=== PATIENT | female | born 1960 | race Caucasian/White ===

== ENCOUNTER 2020-12-23 20:09 | Observation (INO) | payer MEDICARE, MEDICAID ==
[~2020-12-23] VITALS: Ht 172.7 cm; Wt 98.0 kg
[~2020-12-23 20:09] MED LIST: FLEXERIL10 MG PO; LINDANE TP; NO HOME MEDICATIONS; NORCO 325 MG-51 TA1 PO; NORCO 325 MG-51 TAB PO; PEN-VEE K250 MG PO; PEN-VEE K500 MG PO
[2020-12-23] MEDS ORDERED: PROVENTIL0.09 MG/A1 IH (20:22)
[2020-12-23 21:00] LABS: BASO # 0.05 (0.02-0.10); EOS # 0.48 (0.04-0.40); EOS % 4.2 % (1.0-5.0); HEMATOCRIT 43.6 % (37.0-47.0); HEMOGLOBIN 14.5 g/dL (12.5-16.0); LYMPH# 4.32 (1.50-4.00); MEAN CELL VOLUME 94 fl (78-100); MEAN CORPUSCULAR HEMOGLOBIN 31 pg (27-31); MEAN CORPUSCULAR HGB CONC 33 g/dL (33-37); MEAN PLATELET VOLUME 9.7 fl (7.4-10.4); MONO # 0.92 (0.20-0.80); NEU # 5.64 (1.40-6.50); PLATELET COUNT 247 K/mm3 (130-400); RED BLOOD COUNT 4.62 M/mm3 (4.10-5.30); RED CELL DISTRIBUTION WIDTH 13.1 % (11.5-14.5); WHITE BLOOD COUNT 11.4 K/mm3 (4.8-10.8)
[2020-12-23 21:11] LABS: POTASSIUM 3.5 mmol/L (3.5-5.1); SODIUM 140 mmol/L (136-145)
[2020-12-23 21:12] LABS: CALCIUM 9.5 mg/dL (8.3-10.5)
[2020-12-23 21:13] LABS: GLUCOSE 94 mg/dL (65-105); TOTAL PROTEIN 7.4 g/dL (6.2-8.1)
[2020-12-23 21:14] LABS: CARBON DIOXIDE 21 mmol/L (23-31)
[2020-12-23 21:15] LABS: TOTAL BILIRUBIN 0.4 mg/dL (0.2-1.2)
[2020-12-23 21:18] LABS: AST-SGOT 22 U/L (5-34)
[2020-12-23 21:19] LABS: ALT/SGPT 28 U/L (0-55)
[2020-12-23 21:35] LABS: TROPONIN-I < 0.03 ng/mL (<0.030)
[2020-12-23 22:49] LABS: URINE APPEARANCE HAZY; URINE BILIRUBIN NEGATIVE (NEGATIVE); URINE BLOOD 50 ery/uL (NEGATIVE); URINE COLOR YELLOW; URINE GLUCOSE NEGATIVE (NEGATIVE); URINE KETONE NEGATIVE (NEGATIVE); URINE LEUKOCYTE ESTERASE 1+ (NEGATIVE); URINE MUCUS PRESENT (NOT PRESENT); URINE NITRATE NEGATIVE (NEGATIVE); URINE PROTEIN(semi-quant) NEGATIVE (NEGATIVE); URINE UROBILINOGEN NORMAL (NORMAL); URINE WBC 16-30 /hpf (0-3)
[2020-12-24 02:10] VITALS: BP 168/98
[2020-12-24 06:14] VITALS: BP 105/65
[2020-12-24 09:38] VITALS: BP 119/62
[2020-12-24] MEDS ORDERED: PROVENTIL0.09 MG/A1 IH (11:07)
[2020-12-24] MEDS ORDERED: CEFDINIR300 MG PO (11:07)
[2020-12-24] MEDS ORDERED: ASPIRIN E.C. 8181 MG PO (11:07)
[2020-12-24] MEDS ORDERED: LISINOPRIL10 MG PO (11:08)
[2020-12-24] MEDS ORDERED: PRILOSEC 20MG20 MG PO (11:09)
== END 2020-12-24 12:30 | disposition home or self-care (01) ==
LOC: ED 20:09 → MED/SURG 12-24 00:30
PROVIDERS: ADMIT Nurse Practitioner Family
DX: F41.9 Anxiety disorder, unspecified (principal); H53.2 Diplopia; J44.9 Chronic obstructive pulmonary disease, unspecified; K21.9 Gastro-esophageal reflux disease without esophagitis; I63.9 Cerebral infarction, unspecified; I16.0 Hypertensive urgency; N39.0 Urinary tract infection, site not specified; F17.210 Nicotine dependence, cigarettes, uncomplicated; Z90.710 Acquired absence of both cervix and uterus
CPT/HCPCS: G0378; J2060

== ENCOUNTER 2021-04-07 13:01 | Emergency (ER) | payer MEDICARE, MEDICAID ==
[~2021-04-07] VITALS: Ht 172.7 cm; Wt 93.0 kg
[~2021-04-07 13:01] MED LIST changes: +ASPIRIN E.C. 8181 MG PO; +CEFDINIR300 MG PO; +LISINOPRIL10 MG PO; +PRILOSEC 20MG20 MG PO; +PROVENTIL0.09 MG/A1 IH
[2021-04-07 14:19] LABS: BASO # 0.03 K/mm3 (0.02-0.10); EOS # 0.03 K/mm3 (0.04-0.40); EOS % 0.4 % (1.0-5.0); HEMATOCRIT 40.6 % (37.0-47.0); HEMOGLOBIN 13.5 g/dL (12.5-16.0); LYMPH# 1.96 K/mm3 (1.50-4.00); MEAN CELL VOLUME 93 fl (78-100); MEAN CORPUSCULAR HEMOGLOBIN 31 pg (27-31); MEAN CORPUSCULAR HGB CONC 33 g/dL (33-37); MEAN PLATELET VOLUME 11.8 fl (7.4-10.4); MONO # 0.86 K/mm3 (0.20-0.80); NEU # 4.63 K/mm3 (1.40-6.50); PLATELET COUNT 149 K/mm3 (130-400); RED BLOOD COUNT 4.36 M/mm3 (4.10-5.30); RED CELL DISTRIBUTION WIDTH 13.4 % (11.5-14.5); WHITE BLOOD COUNT 7.5 K/mm3 (4.8-10.8)
[2021-04-07 14:27] LABS: ALBUMIN 3.7 g/dL (3.4-4.8); POTASSIUM 3.6 mmol/L (3.5-5.1)
[2021-04-07 14:29] LABS: CALCIUM 8.5 mg/dL (8.3-10.5)
[2021-04-07 14:32] LABS: TOTAL BILIRUBIN 0.8 mg/dL (0.2-1.2)
[2021-04-07] MEDS ORDERED: ZOFRAN ODT4 MG PO (15:02)
[2021-04-07 15:35] VITALS: BP 112/64
== END 2021-04-07 15:46 | disposition home or self-care (01) ==
LOC: ED 13:01
PROVIDERS: Nurse Practitioner
DX: U07.1 COVID-19 (principal); J44.9 Chronic obstructive pulmonary disease, unspecified; Z87.891 Personal history of nicotine dependence; Z73.0 Burn-out; Z79.899 Other long term (current) drug therapy
CPT/HCPCS: J2405; J7030